=== PATIENT | female | born 1995 | race African-American/Black ===

== ENCOUNTER 2020-09-02 12:19 | Emergency (ER) | payer OTHER ==
[~2020-09-02] VITALS: Ht 182.9 cm; Wt 131.4 kg
[2020-09-02] MEDS ORDERED: TRILEPTAL600 M1 PO (12:48)
[2020-09-02] MEDS ORDERED: ADVAIR DISK1 IN (12:48)
[2020-09-02] MEDS ORDERED: ZOLOFT50 MG PO (12:49)
[2020-09-02] MEDS ORDERED: WELLBUTRIN150 M2 PO (12:49)
[2020-09-02] MEDS ORDERED: SEROQUEL100 MG PO (12:50)
[2020-09-02] MEDS ORDERED: ALBUTEROL SUL0.083 % IN (12:51)
[2020-09-02] MEDS ORDERED: PEPCID20 MG PO (14:12)
[2020-09-02] MEDS ORDERED: MEDDOSEPAK PO (14:12)
[2020-09-02 14:26] VITALS: BP 96/80
== END 2020-09-02 14:26 | disposition home or self-care (01) ==
LOC: ED 12:19
DX: L50.9 Urticaria, unspecified (principal); J45.909 Unspecified asthma, uncomplicated; F32.9 Major depressive disorder, single episode, unspecified

== ENCOUNTER 2020-09-08 15:16 | Emergency (ER) | payer OTHER ==
[~2020-09-08] VITALS: Ht 182.9 cm; Wt 130.0 kg
[~2020-09-08 15:16] MED LIST: ADVAIR DISK1 IN; ALBUTEROL SUL0.083 % IN; MEDDOSEPAK PO; PEPCID20 MG PO; SEROQUEL100 MG PO; TRILEPTAL600 M1 PO; WELLBUTRIN150 M2 PO; ZOLOFT50 MG PO
[2020-09-08] MEDS ORDERED: CETIRIZINE10 MG PO (15:33)
[2020-09-08] MEDS ORDERED: CARBAMAZEPIN200 MG PO (15:34)
[2020-09-08] MEDS ORDERED: CYCLOBENZAPR5 MG PO (15:36)
[2020-09-08] MEDS ORDERED: QUETIAPINE FUMA50 MG PO (15:37)
[2020-09-08] MEDS ORDERED: MELOXICAM7.5 MG PO (15:39)
[2020-09-08] MEDS ORDERED: ZONISAMIDE100 MG PO (15:39)
[2020-09-08] MEDS ORDERED: TIZANIDINE HCL4 MG PO (15:40)
[2020-09-08] MEDS ORDERED: MONTELUKAST SODI4 MG PO (15:41)
[2020-09-08] MEDS ORDERED: MONTELUKAST SOD10 MG PO (15:42)
[2020-09-08] MEDS ORDERED: NAPROXEN250 MG PO (15:43)
[2020-09-08 15:45] LABS: HEMATOCRIT 38.8 % (37.0-47.0); HEMOGLOBIN 11.7 g/dl (12.0-16.0); IMMATURE GRANULOCYTES 0.1 % (0.0-5.0); MEAN CELL VOLUME 77.8 fL CALC (80.0-100.0); MEAN CORPUSCULAR HGB 23.4 pG CALC (26.0-32.0); MEAN CORPUSCULAR HGB CONC 30.2 g/dL CAL (32.0-36.0); NEUT# 4.74 thou/uL (2.00-7.15); RED BLOOD COUNT 4.99 mill/uL (4.20-5.60); RED CELL DISTRI WIDTH 15.5 % (11.5-15.5)
[2020-09-08 15:57] LABS: ALBUMIN 4.2 g/dL (3.2-5.0); ANION GAP 11 (6-22 (CALC)); BILIRUBIN, TOTAL 0.3 mg/dL (0.0-1.4); BUN 16 mg/dL (7-17); BUN/CREATININE RATIO 21 (12-20 (CALC)); CARBON DIOXIDE 29 mmol/l (22-30); CHLORIDE 101 mmol/l (95-108); CPK 154 u/l (30-165); CREATININE 0.8 mg/dL (0.5-1.0); ETHYL ALCOHOL 0 mg/dl (0-30); GFR > 60 ML/MIN (>=60 (CALC)); GFR FOR AFR.AMER. > 60 ML/MIN (>=60 (CALC)); LIPASE 59 u/l (23-300); MAGNESIUM 2.1 mg/dL (1.6-2.3); POTASSIUM 4.1 mmol/l (3.5-5.1); SGOT/AST 26 u/l (14-36); SODIUM 137 mmol/l (137-146); TOTAL PROTEIN 7.6 g/dL (6.3-8.2)
[2020-09-08 15:58] LABS: ALKALINE PHOSPHATASE 84 u/l (38-126)
[2020-09-08] MEDS ORDERED: WELLBUTRIN150 M1 PO (16:07)
[2020-09-08 16:21] LABS: ACT PARTIAL THROMBO TIME 23.8 SECONDS (20.0-32.5); INTERNATIONAL NORMALIZED RATIO 1.1 RATIO (0.7-1.3)
[2020-09-08 17:09] LABS: URINE BILIRUBIN - DIPSTICK NEGATIVE (NEGATIVE); URINE BLOOD DIPSTICK NEGATIVE (NEGATIVE); URINE COLOR YELLOW; URINE GLUCOSE - DIPSTICK NEGATIVE (NEGATIVE); URINE KETONE TRACE mg/dL (NEGATIVE); URINE LEUK ESTERASE TRACE (NEGATIVE); URINE NITRITE - DIPSTICK NEGATIVE (Negative); URINE PH 6.5 (4.5-8.0); URINE PROTEIN - DIPSTICK NEGATIVE (NEG-TRACE)
[2020-09-08 18:00] VITALS: BP 126/60
== END 2020-09-08 17:30 | disposition home or self-care (01) ==
LOC: ED 15:16
DX: G40.909 Epilepsy, unspecified, not intractable, without status epilepticus (principal); J45.909 Unspecified asthma, uncomplicated; F32.9 Major depressive disorder, single episode, unspecified; Z98.84 Bariatric surgery status; Z20.822 Contact with and (suspected) exposure to COVID-19

== ENCOUNTER 2020-12-04 16:00 | Emergency (ER) | payer OTHER ==
[~2020-12-04] VITALS: Ht 182.9 cm; Wt 128.0 kg
[~2020-12-04 16:00] MED LIST changes: +CARBAMAZEPIN200 MG PO; +CETIRIZINE10 MG PO; +CYCLOBENZAPR5 MG PO; +MELOXICAM7.5 MG PO; +MONTELUKAST SOD10 MG PO; +MONTELUKAST SODI4 MG PO; +NAPROXEN250 MG PO; +QUETIAPINE FUMA50 MG PO; +TIZANIDINE HCL4 MG PO; +WELLBUTRIN150 M1 PO; +ZONISAMIDE100 MG PO
[2020-12-04 17:04] LABS: HEMATOCRIT 37.7 % (37.0-47.0); HEMOGLOBIN 11.5 g/dl (12.0-16.0); MEAN CELL VOLUME 78.5 fL CALC (80.0-100.0); MEAN CORPUSCULAR HGB CONC 30.5 g/dL CAL (32.0-36.0); NEUT# 5.36 thou/uL (2.00-7.15); RED BLOOD COUNT 4.8 mill/uL (4.20-5.60); RED CELL DISTRI WIDTH 14.8 % (11.5-15.5)
[2020-12-04 17:22] LABS: ANION GAP 12 (6-22 (CALC)); BUN 10 mg/dL (7-17); BUN/CREATININE RATIO 13 (12-20 (CALC)); CARBON DIOXIDE 28 mmol/l (22-30); CHLORIDE 104 mmol/l (95-108); CREATININE 0.7 mg/dL (0.5-1.0); GFR > 60 ML/MIN (>=60 (CALC)); GFR FOR AFR.AMER. > 60 ML/MIN (>=60 (CALC)); POTASSIUM 4.3 mmol/l (3.5-5.1); SODIUM 140 mmol/l (137-146)
[2020-12-04 18:14] VITALS: BP 128/72
== END 2020-12-04 18:20 | disposition home or self-care (01) ==
LOC: ED 16:00
PROVIDERS: Family Medicine
DX: R04.0 Epistaxis (principal); F31.9 Bipolar disorder, unspecified; F41.9 Anxiety disorder, unspecified; J45.909 Unspecified asthma, uncomplicated

== ENCOUNTER 2020-12-06 15:57 | Emergency (ER) | payer OTHER ==
[~2020-12-06] VITALS: Ht 182.9 cm; Wt 135.0 kg
[2020-12-06 20:12] VITALS: BP 130/62
== END 2020-12-06 19:48 | disposition home or self-care (01) ==
LOC: ED 15:57
DX: R04.0 Epistaxis (principal); J45.909 Unspecified asthma, uncomplicated; F32.A Depression, unspecified

== ENCOUNTER 2021-02-09 11:09 | Emergency (ER) | payer SELFPAY ==
[~2021-02-09] VITALS: Ht 182.9 cm; Wt 124.0 kg
[2021-02-09] MEDS ORDERED: TESSALON PERLE100 MG PO (12:58)
[2021-02-09] MEDS ORDERED: ZPAK PO (12:58)
[2021-02-09 13:12] VITALS: BP 113/55
== END 2021-02-09 13:12 | disposition home or self-care (01) | DRG 203 ==
LOC: ED 11:09
DX: J45.909 Unspecified asthma, uncomplicated (principal); F32.A Depression, unspecified; Z20.822 Contact with and (suspected) exposure to COVID-19

== ENCOUNTER 2021-03-21 17:54 | Emergency (ER) | payer OTHER ==
[~2021-03-21] VITALS: Ht 182.9 cm; Wt 122.0 kg
[~2021-03-21 17:54] MED LIST changes: +TESSALON PERLE100 MG PO; +ZPAK PO
[2021-03-21 19:52] LABS: URINE BILIRUBIN - DIPSTICK NEGATIVE (NEGATIVE); URINE BLOOD DIPSTICK NEGATIVE (NEGATIVE); URINE COLOR YELLOW; URINE GLUCOSE - DIPSTICK NEGATIVE (NEGATIVE); URINE KETONE NEGATIVE (NEGATIVE); URINE LEUK ESTERASE TRACE (NEGATIVE); URINE PH 7.5 (4.5-8.0); URINE PROTEIN - DIPSTICK NEGATIVE (NEG-TRACE); URINE SPECIFIC GRAVITY 1.025
[2021-03-21 19:54] LABS: URINE NITRITE - DIPSTICK NEGATIVE (Negative)
[2021-03-21] MEDS ORDERED: ZPAK PO (20:44)
[2021-03-21 21:07] VITALS: BP 137/82
== END 2021-03-21 21:07 | disposition home or self-care (01) | DRG 179 ==
LOC: ED 17:54
PROVIDERS: Emergency Medicine
DX: U07.1 COVID-19 (principal); J45.909 Unspecified asthma, uncomplicated; F32.9 Major depressive disorder, single episode, unspecified; Z98.84 Bariatric surgery status

== ENCOUNTER 2022-01-20 11:29 | Emergency (ER) | payer SELFPAY ==
[~2022-01-20] VITALS: Ht 182.9 cm; Wt 123.0 kg
[2022-01-20] MEDS ORDERED: ZPAK PO (12:53)
[2022-01-20 12:59] VITALS: BP 128/75
== END 2022-01-20 13:10 | disposition home or self-care (01) | DRG 153 ==
LOC: ED 11:29
DX: J06.9 Acute upper respiratory infection, unspecified (principal)

== ENCOUNTER 2022-05-03 17:06 | Emergency (ER) | payer OTHER ==
[~2022-05-03] VITALS: Ht 182.9 cm; Wt 122.0 kg
[2022-05-03 18:10] LABS: URINE BILIRUBIN - DIPSTICK NEGATIVE (NEGATIVE); URINE BLOOD DIPSTICK NEGATIVE (NEGATIVE); URINE COLOR YELLOW; URINE GLUCOSE - DIPSTICK NEGATIVE (NEGATIVE); URINE KETONE TRACE mg/dL (NEGATIVE); URINE PH 6.5 (4.5-8.0); URINE PROTEIN - DIPSTICK NEGATIVE (NEG-TRACE); URINE SPECIFIC GRAVITY 1.025
[2022-05-03 18:13] LABS: URINE LEUK ESTERASE LARGE (NEGATIVE); URINE NITRITE - DIPSTICK NEGATIVE (Negative)
[2022-05-03 18:16] LABS: URINE BACTERIA FEW hpf; URINE SQUAMOUS EPITHELIAL CELL MANY EPI/hpf (0-FEW); URINE WBC 20-50 WBC/hpf (0-5)
[2022-05-03] MEDS ORDERED: MACROBID100 M1 PO (19:00)
[2022-05-03] MEDS ORDERED: ZYRTEC10 MG PO (19:00)
[2022-05-03] MEDS ORDERED: NAPROXEN500 MG PO (19:01)
[2022-05-03 19:46] VITALS: BP 124/77
== END 2022-05-03 19:53 | disposition home or self-care (01) ==
LOC: ED 17:06
PROVIDERS: Nurse Practitioner
DX: J06.9 Acute upper respiratory infection, unspecified (principal); N39.0 Urinary tract infection, site not specified; J45.909 Unspecified asthma, uncomplicated; F32.A Depression, unspecified; Z20.822 Contact with and (suspected) exposure to COVID-19